=== PATIENT | male | born 1955 | race Caucasian/White ===

== ENCOUNTER 2022-04-15 21:43 | Emergency (ER) | payer BC, MEDICAID ==
[~2022-04-15] VITALS: Ht 180.3 cm; Wt 73.0 kg
[2022-04-16] MEDS ORDERED: IBUP-2029 MT (01:40)
[2022-04-16] MEDS ORDERED: T3 PO (01:40)
[2022-04-16 08:12] VITALS: BP 137/82
== END 2022-04-16 08:12 | disposition home or self-care (01) ==
LOC: ER 21:43
DX: M25.561 Pain in right knee (principal); W18.39XA Other fall on same level, initial encounter; Y93.89 Activity, other specified; Y92.89 Other specified places as the place of occurrence of the external cause; Y99.8 Other external cause status; J44.9 Chronic obstructive pulmonary disease, unspecified; Z87.440 Personal history of urinary (tract) infections
CPT/HCPCS: 73080; 73560; 99284